=== PATIENT | male | born 1985 | race Caucasian/White ===

== ENCOUNTER → 2018-08-24 | Outpatient (CLI) | payer BC ==
--- NOTE | 2018-08-24 16:03 | REP ---
Clinical: Trauma. Technique: AP, lateral, bilateral oblique and sunrise views left knee . Findings: The osseous structures and joint spaces are intact and normal. There is no evidence for acute fracture or dislocation. No joint effusion is appreciated. Surrounding soft tissues are unremarkable. No subcutaneous emphysema or radiodense foreign body. Impression: Normal examination. No acute fracture or dislocation. Electronically Signed by Jose Todd MD 08/24/2018 03:54 P
== END ==
LOC: M WUC 15:37
PROVIDERS: ATTEND Physician Assistant
DX: S83.402A Sprain of unspecified collateral ligament of left knee, initial encounter (principal); X58.XXXA Exposure to other specified factors, initial encounter; Y92.9 Unspecified place or not applicable

== ENCOUNTER → 2018-10-24 | Outpatient (CLI) | payer BC ==
--- NOTE | 2018-10-24 13:35 | REP ---
MRI LEFT KNEE WITHOUT CONTRAST: HISTORY: Pain in the left knee. The patient relates a recent injury. Comparison radiographs are from August 24, 2018. TECHNIQUE: Axial, coronal, and sagittal imaging planes are utilized. T1-, proton density, and T2-weighted scans are obtained in the usual fashion. MRI FINDINGS: Cortical and medullary bone signal intensity are normal. There is a very small Rushing cyst in the posteromedial popliteal soft tissues. A small quantity of joint fluid is visible. Patellar and quadriceps tendons are intact. Anterior and posterior cruciate ligaments have an intact appearance. There is no evidence of medial or lateral collateral ligament disruption. Medial and lateral meniscus appear intact. No articular cartilage defect is appreciated. IMPRESSION: Minimal joint fluid and tiny Rushing cyst. No internal derangement seen. Otherwise negative. Electronically Signed by Eliceo Michele MD 10/24/2018 03:46 P
== END ==
LOC: M RAD 09:48
PROVIDERS: ATTEND Orthopaedic Surgery Sports Medicine
DX: M25.562 Pain in left knee (principal); M71.22 Synovial cyst of popliteal space [Baker], left knee; M25.462 Effusion, left knee

== ENCOUNTER → 2019-07-24 | Outpatient (REF) | payer BC | LOC: M SFHCCLAY 11:33 | PROVIDERS: ATTEND Nurse Practitioner Family | DX: K21.9 Gastro-esophageal reflux disease without esophagitis (principal) ==

== ENCOUNTER → 2019-08-22 | Outpatient (CLI) | payer BC ==
[~2019-08-22] MED LIST: AMOX875T PO; CLAR500T97 PO; OMEG10002 PO; PANT40TA3 PO; SUCR1TA PO; VITAD1000T PO
== END ==
LOC: M LABSMTC 10:02
PROVIDERS: ATTEND Anesthesiology
DX: Z01.818 Encounter for other preprocedural examination (principal); Z11.59 Encounter for screening for other viral diseases
CPT/HCPCS: C9803; U0003

== ENCOUNTER 2019-08-25 09:13 | Day surgery (SDC) | payer BC ==
[~2019-08-25] VITALS: Ht 180.3 cm; Wt 72.1 kg
[~2019-08-25 09:13] MED LIST changes: +NS 1,000 ML IV SCH
[2019-08-25] MEDS ORDERED: LIDOCAINE 2% 100MG/5ML SDV (FOR ANES.) As Ordered ONE (10:36)
[2019-08-25] MEDS ORDERED: propofoL 200 MG/20 ML VIAL As Ordered ONE (10:36)
--- NOTE | 2019-08-25 10:49 | ROOR ---
Patient Name: Nestor Field Procedure Date: 08/25/2019 10:17 AM Date of : 1985 Age: 34 Room: [facility] Gender: Male Note Status: Finalized Procedure: Upper GI endoscopy Indications: Esophageal reflux symptoms that persist despite appropriate therapy, Nausea Providers: Isma Taylor MD Referring MD: Tracie Harris NP Requesting Provider: Medicines: Monitored Anesthesia Care Complications: No immediate complications. Procedure: Pre-Anesthesia Assessment: - Prior to the procedure, a History and Physical was performed, and patient medications and allergies were reviewed. The patient is competent. The risks and benefits of the procedure and the sedation options and risks were discussed with the patient. All questions were answered and informed consent was obtained. Patient identification and proposed procedure were verified by the physician, the nurse and the anesthesiologist in the procedure room. Mental Status Examination: alert and oriented. Airway Examination: normal oropharyngeal airway and neck mobility. Prophylactic Antibiotics: The patient does not require prophylactic antibiotics. Prior Anticoagulants: The patient has taken no previous anticoagulant or antiplatelet agents. ASA Grade Assessment: II - A patient with mild systemic disease. After reviewing the risks and benefits, the patient was deemed in satisfactory condition to undergo the procedure. The anesthesia plan was to use monitored anesthesia care (MAC). Immediately prior to administration of medications, the patient was re-assessed for adequacy to receive sedatives. The heart rate, respiratory rate, oxygen saturations, blood pressure, adequacy of pulmonary ventilation, and response to care were monitored throughout the procedure. The physical status of the patient was re-assessed after the procedure. The Endoscope was introduced through the mouth, and advanced to the third part of duodenum. The upper GI endoscopy was accomplished without difficulty. The patient tolerated the procedure well. Findings: The Z-line was normal but there were three very small islands of redder lining just above. The exam of the esophagus was otherwise normal. The entire examined stomach was normal. The examined duodenum was normal. Impression: - Z-line normal but there were three very small islands of redder lining just above. - Normal stomach. - Normal examined duodenum. - No specimens collected. Recommendation: - Discharge patient to home. - Resume previous diet. - Continue present medications. - Return to referring physician PRN. Isma Taylor MD Isma Taylor MD 08/25/2019 10:49:15 AM Electronically signed by Isma Taylor MD Number of Addenda: 0 Note Initiated On: 08/25/2019 10:17 AM Estimated Blood Loss: Estimated blood loss: none.
[2019-08-25 11:05] VITALS: BP 118/72
== END 2019-08-25 11:30 | disposition home or self-care (01) ==
LOC: M OPP 09:13
PROVIDERS: ATTEND Surgery
DX: K21.9 Gastro-esophageal reflux disease without esophagitis (principal); R11.0 Nausea; Z79.899 Other long term (current) drug therapy; Z88.0 Allergy status to penicillin

== ENCOUNTER → 2019-08-27 | Outpatient (REF) | payer BC ==
[~2019-08-27] MED LIST changes: -NS 1,000 ML IV SCH
[2019-08-27 16:46] LABS: HEMOGLOBIN 14.2 g/dl (13.5-17.5); MEAN CORPUSCULAR HEMOGLOBIN 31.8 pg (27.0-33.0); MEAN CORPUSCULAR HGB CONC 33.8 g/dl (32.0-36.5); PLATELET COUNT, AUTOMATED 183 10^3/uL (150-450); RED BLOOD COUNT 4.47 10^6/uL (4.30-6.10); WHITE BLOOD COUNT 3.4 10^3/uL (4.0-10.0)
[2019-08-27 17:21] LABS: ALBUMIN 4.3 GM/DL (3.2-5.2); ALT/SGPT 32 U/L (12-78); BILIRUBIN,TOTAL 0.5 MG/DL (0.2-1.0); BLOOD UREA NITROGEN 14 MG/DL (7-18); CALCIUM LEVEL 8.9 MG/DL (8.5-10.1); CARBON DIOXIDE LEVEL 31 MEQ/L (21-32); CHLORIDE LEVEL 106 MEQ/L (98-107); CHOLESTEROL LEVEL 204 MG/DL (<200); CHOLESTEROL RISK RATIO 2.428 (<5); FREE THYROXINE INDEX 4.4 % (1.4-3.8); GLOMERULAR FILTRATION RATE > 60.0 (>60); GLUCOSE, FASTING 81 MG/DL (70-100); HDL CHOLESTEROL 84 MG/DL (>40); LDL CHOLESTEROL 108 MG/DL (<100); NON-HDL-C 120 MG/DL; POTASSIUM SERUM 4.4 MEQ/L (3.5-5.1); SODIUM LEVEL 140 MEQ/L (136-145); T UPTAKE 37 % (33-40); THYROID STIMULATING HORMONE 0.818 uIU/ML (0.358-3.740); TOTAL 25(OH) VITAMIN D 30.8 NG/ML (30.0-100.0); TOTAL PROTEIN 7.3 GM/DL (6.4-8.2); TRIGLYCERIDES LEVEL 62 MG/DL (<150)
[2019-08-27 17:28] LABS: FOLATE 16.3 NG/ML (>5.4); VITAMIN B12 LEVEL 459 PG/ML (247-911)
[2019-09-01 10:07] LABS: H PYLORI STOOL ANTIGEN Negative (Negative); VITAMIN C, ASCORBIC ACID 1.4 mg/dL (0.4-2.0)
== END ==
LOC: M SFHCCLAY 10:15
PROVIDERS: ATTEND Nurse Practitioner Family
DX: K21.9 Gastro-esophageal reflux disease without esophagitis (principal); K12.1 Other forms of stomatitis; A04.8 Other specified bacterial intestinal infections; Z13.6 Encounter for screening for cardiovascular disorders; R68.89 Other general symptoms and signs; Z13.21 Encounter for screening for nutritional disorder

== ENCOUNTER → 2019-09-17 | Outpatient (CLI) | payer BC ==
--- NOTE | 2019-09-17 09:52 | REP ---
THYROID SONOGRAPHY: HISTORY: Dysphagia. FINDINGS: Thyroid isthmus is 0.4 cm in thickness. There are two tiny cysts in the right lobe of the thyroid. The largest of these is 3 mm. These are not felt to be significant. Right lobe dimensions by ultrasound are 5.5 x 2.3 x 2.0 cm left lobe dimensions are 6.1 x 2.0 x 1.9 cm. No extra thyroid mass or adenopathy is seen. IMPRESSION: Unremarkable thyroid sonography. Electronically Signed by Eliceo Michele MD 09/17/2019 10:34 A
== END ==
LOC: M RAD 08:16
PROVIDERS: ATTEND Specialist
DX: R13.10 Dysphagia, unspecified (principal)

== ENCOUNTER → 2019-10-08 | Outpatient (REF) | payer BC ==
[~2019-10-08] MED LIST changes: +D31000TA2 PO; +PANT40TA29 PO; -PANT40TA3 PO; -VITAD1000T PO
== END ==
LOC: M SFHCCLAY 11:40
PROVIDERS: ATTEND Nurse Practitioner Family
DX: K21.9 Gastro-esophageal reflux disease without esophagitis (principal); R19.7 Diarrhea, unspecified

== ENCOUNTER → 2020-03-01 | Outpatient (CLI) | payer SELFPAY | LOC: M LABSMTC 12:42 | PROVIDERS: ATTEND Pediatrics | DX: Z11.59 Encounter for screening for other viral diseases (principal) ==

== ENCOUNTER → 2020-03-22 | Outpatient (CLI) | payer BC ==
[~2020-03-22] MED LIST changes: +E-Z-GAS II EFFERVESCENT PACKET (SODIUM BICARB./CITRIC ACID/SIMETHICONE) As Ordered ONE; +E-Z-HD 98% w/w 340GM SUSP BTL As Ordered ONE; +E-Z-PAQUE 96% w/w SUSP 176GM BTL As Ordered ONE
--- NOTE | 2020-03-22 16:39 | REP ---
INDICATION: GAS PAIN. COMPARISON: None. TECHNIQUE: The procedure was performed under the direct supervision of Dr. Michele. The images were reviewed with Dr. Michele. Liquid barium and gas producing crystals were given in the erect position as well as liquid barium in the prone oblique position in order to perform a double contrast upper GI examination. Additionally liquid barium was given at the end of the examination in order to perform a small bowel follow through. 2.4 of fluoro time was utilized for this procedure. FINDINGS: The montessori toddler teacher film shows no organomegaly or pathological masses. The intestinal gas pattern is non-specific. The oral and pharyngeal stages of deglutition are unremarkable. Esophageal transport is prompt and efficient and there is no esophagitis, stricture or mucosal ring. There is a sliding-type hiatal hernia. There is gastroesophageal reflux demonstrated to above the level of the travis. There is mild mucosal irregularity at the GE junction. These findings are consistent with reflux esophagitis.. The stomach wagoner are normally outlined. The rugal folds are smooth and regular. There is no gastritis neoplasm or ulcer disease. The duodenal wagoner are normally outlined . The mucosal folds are smooth and regular. There is no duodenitis pancreatitis peptic ulcer disease or neoplasm. The visualized portion of the proximal small bowel appears normal in course and caliber. The barium column was followed through the small bowel to the level of the terminal ileum. Small bowel transit time is approximately 60 minutes. During fluoroscopy gentle palpation shows all loops are freely movable and pliable. There are no fixed or angulated loops. The small bowel mucosal pattern is normal in course and caliber. There is no transition to suggest a partial small-bowel obstruction. Spot filming of the terminal ileum shows it to be unremarkable. IMPRESSION: There is a sliding-type hiatal hernia. There is gastroesophageal reflux demonstrated to above the level of the travis. There is mild mucosal irregularity at the GE junction. These findings are consistent with reflux esophagitis. <Electronically signed by Tc Mota > 03/22/20 1630 <Electronically signed by Damion Michele > 03/22/20 1630
== END ==
LOC: M RAD 07:48
PROVIDERS: ATTEND Specialist
DX: R14.1 Gas pain (principal); K21.9 Gastro-esophageal reflux disease without esophagitis; K44.9 Diaphragmatic hernia without obstruction or gangrene